=== PATIENT | female | born 1960 | race Caucasian/White ===

== ENCOUNTER 2020-10-08 06:53 | Day surgery (SDC) | payer MEDICAID ==
[2020-10-01 11:28] LABS: MEAN CORPUSCULAR HGB CONC 33.9 g/dL (33.0-36.5); PRE OP HEMOGLOBIN 12.1 g/dL (12.0-16.0); RED CELL DISTRIBUTION WIDTH 14.3 % (11.5-14.5)
[2020-10-01 11:30] LABS: MEAN CORPUSCULAR HEMOGLOBIN 32.7 PG (27.0-31.0); MEAN CORPUSCULAR VOLUME 96.5 FL (78-98); PRE OP HEMATOCRIT 35.6 % (35.0-45.0); PRE OP PLATELET COUNT 262 X10'3 (140-440); RED BLOOD COUNT 3.69 X10'6 (4.20-5.60)
[2020-10-01 11:41] LABS: ALBUMIN 3.7 G/DL (3.4-5.0); ALBUMIN/GLOBULIN RATIO 1.2 (1.1-1.5); ALKALINE PHOSPHATASE 46 IU/L (46-116); BLOOD UREA NITROGEN 17 MG/DL (7-18); BUN/CREATININE RATIO 25.4 (6.6-38.0); CALCIUM 9.2 MG/DL (8.5-10.1); CHLORIDE 103 MMOL/L (99-107); CREATININE 0.67 MG/DL (0.40-0.90); PRE OP ALT 37 U/L (30-65); PRE OP ANION GAP 7 (8-16); PRE OP AST 47 U/L (10-37); PRE OP BILIRUB, TOTAL 0.4 MG/DL (0.0-1.0); PRE OP GLUCOSE 86 MG/DL (70-104); PRE OP POTASSIUM 3.9 MMOL/L (3.4-5.1); PRE OP SODIUM 137 MMOL/L (135-145); TOTAL CARBON DIOXIDE 26.9 MMOL/L (24-32); TOTAL PROTEIN 6.9 G/DL (6.4-8.2); eGFR 89 ML/MIN
[2020-10-01 12:03] LABS: PLATELET ESTIMATE NORMAL; TOTAL CELLS COUNTED 100
[2020-10-08] VITALS (7 sets, daily range): BP systolic 110–136; BP diastolic 60–106
[~2020-10-08] VITALS: Ht 175.3 cm; Wt 58.0 kg
[~2020-10-08 06:53] MED LIST: ANAS1TAB PO; CALC600T22 PO; CHOL50004 PO; IBUP-1986 PO; MULT-38 PO; albuterol 2.5 MG/3 ML nebule NEB ONE; ceFAZolin 2gm in dextrose, iso 50 ML IV ONE; famotidine 20mg tablet PO ONE; ringers solution, lacted 1,000 ML IV SCH
[2020-10-08] MEDS ORDERED: dexamethasone sod phosphate 10mg/ml inj ONE (10:40)
[2020-10-08] MEDS ORDERED: sevoflurane 250ml liquid IH ONE (10:40)
[2020-10-08] MEDS ORDERED: MIDAZolam 1 MG/ML 5ML VIAL ONE (10:42)
[2020-10-08] MEDS ORDERED: fentaNYL/PF 50MCG/1 ML 2ML syringe ONE ×2 (10:42→10:55)
[2020-10-08] MEDS ORDERED: propofol inj 20 ML IV ONE (10:43)
[2020-10-08] MEDS ORDERED: ROPIVAcaine 0.5% (5mg/ml) 30ml vial ONE (10:43)
[2020-10-08] MEDS ORDERED: LIDOcaine 2% (20mg/ml) 5ml vial ONE (10:43)
[2020-10-08] MEDS ORDERED: ondansetron/PF 4mg/2ml inj ONE (10:56)
[2020-10-08] MEDS ORDERED: ringers solution, lacted 1,000 ML IV SCH (11:15)
[2020-10-08] MEDS ORDERED: morphine 4 MG/ML inj SYRINge IV PRN (11:15)
[2020-10-08] MEDS ORDERED: hydrALAZINE 20mg/ml inj. IV PRN (11:15)
[2020-10-08] MEDS ORDERED: ondansetron/PF 4mg/2ml inj IV PRN (11:15)
[2020-10-08] MEDS ORDERED: morphine 2 MG/ML inj. syringe IV PRN (11:15)
[2020-10-08] MEDS ORDERED: labetalol 20mg/4ml (5mg/ml) syringe IV PRN (11:15)
[2020-10-08] MEDS ORDERED: fentaNYL/PF 50MCG/1 ML 2ML syringe IV PRN ×2 (11:15)
[2020-10-08] MEDS ORDERED: bacitracin 15gm ointment TP ONE (12:18)
--- NOTE | 2020-10-08 12:31 | NUR ---
Received from OR via [facility], accompanied by Anesthesiologist EULOGIO and report given by Anesthesiolgist. PT. VSS. ALERT, TALKING TO STAFF. DENIES PAIN. LEFT FOOT DRESSING INTACT, SMALL AMOUNT OF BLOOD NOTED AT GREAT TOE. REINFORCED WITH GAUZE 2X2. L. FOOT ELEVATED. PT. REPORTS STINGING AT TOURNIGUET SITE, NS MOISTENED GAUZE GIVEN FOR COMFORT. PT. STATES RELIEF. IV IN R. AC. 18 G. CDI. LR INFUSING AT 90 ML/HR. MOVES ALL EXTREMITIES, SENSATION INTACT. Addendum: 10/08/20 at 1301 by Corrine Tyler RN Amended: Links added.
--- NOTE | 2020-10-08 13:10 | NUR ---
pt. bp registered diasolic of 106 which was in error. pt. moving around in bed to be able to drink some coffee. new bp 119/53. Addendum: 10/08/20 at 1334 by Corrine Tyler RN Amended: Links added.
--- NOTE | 2020-10-08 13:31 | NUR ---
PT. DISCHARGED TO FRONT ENTRANCE VIA WC WITH NURSE TO PRIVATE VEHICLE. VSS. DENIES PAIN. L. FOOT DRESSING CDI EXCEPT FOR SMALL AMOUNT OF RED BLOOD AT GREAT TOE, SITE REINFORCED BY 2X2 GAUZE. NO INCREASED BLEEDING NOTED PRIOR TO DC. IV REMOVED. ALL DISCHARGE CRITERIA MET. PT. VERBALIZES UNDERSTANDING OF ALL INSTRUCTIONS AND ALL QUESTIONS WERE ANSWERED. PT. ABLE TO TRANSFER SELF TO VEHICLE. LEFT WITH ALL BELONGINGS AND BOOT. PT. HAD SLIGHT IRRITATION TO LEFT CALF FROM [place]. PT. STATES STINGING. SOME IMPROVEMENT NOTED PRIOR TO DISCHARGE. NO OPEN AREA JUST PINK AND STILL WRINKLED FROM TOURNIQUET. Addendum: 10/08/20 at 1341 by Corrine Tyler RN Amended: Links added.
--- NOTE | 2020-10-08 15:36 | NUR ---
PT. TELEPHONED/ LEFT MESSAGE RE: BOOT APPLICATION. INSTRUCTED TO GO AHEAD AND PLACE BOOT ON AND STRAP DOWN BEST SHE CAN. ENCOURAGED TO WEAR WHEN UP AND ABOUT FOR PROTECTION AND AT NIGHT IF POSSIBLE IN CASE SHE FORGETS SHE HAD SURGERY. ENCOURAGED PT. TO CALL BACK WITH ANY QUESTIONS.
== END 2020-10-08 13:31 | disposition home or self-care (01) ==
LOC: PAS 06:53
PROVIDERS: ATTEND Podiatrist Foot & Ankle Surgery
DX: M20.12 Hallux valgus (acquired), left foot (principal); M25.872 Other specified joint disorders, left ankle and foot; M20.22 Hallux rigidus, left foot; G57.82 Other specified mononeuropathies of left lower limb; M67.472 Ganglion, left ankle and foot; G89.18 Other acute postprocedural pain; F41.9 Anxiety disorder, unspecified; F32.9 Major depressive disorder, single episode, unspecified; M19.072 Primary osteoarthritis, left ankle and foot; M17.11 Unilateral primary osteoarthritis, right knee; F17.210 Nicotine dependence, cigarettes, uncomplicated; Z20.822 Contact with and (suspected) exposure to COVID-19; Z90.710 Acquired absence of both cervix and uterus; Z98.890 Other specified postprocedural states; Z85.3 Personal history of malignant neoplasm of breast; Z87.442 Personal history of urinary calculi; Z88.2 Allergy status to sulfonamides; Z79.899 Other long term (current) drug therapy; Z91.040 Latex allergy status
CPT/HCPCS: 28080; 28750; 36415; 64447; 64450; 71046; 73620; 76000; 80053; 82948; 85025; 93005; A6223; C1713; J1100; J2001; J2250; J2405; J2704; J3010; U0003; 85007; A4618; A6449; A7000; J2795; J7120

== ENCOUNTER 2021-08-18 08:33 | Day surgery (SDC) | payer MEDICAID ==
[~2021-08-18] VITALS: Ht 175.3 cm; Wt 59.2 kg
[2021-08-18] VITALS (10 sets, daily range): BP systolic 105–150; BP diastolic 48–89
[~2021-08-18 08:33] MED LIST changes: -albuterol 2.5 MG/3 ML nebule NEB ONE; -ceFAZolin 2gm in dextrose, iso 50 ML IV ONE; -famotidine 20mg tablet PO ONE; -ringers solution, lacted 1,000 ML IV SCH
[2021-08-18] MEDS ORDERED: normal saline 1000ml 1,000 ML IV PRN (09:00)
[2021-08-18] MEDS ORDERED: midazolam 1 mg/ML 2ml injection ONE (09:28)
[2021-08-18] MEDS ORDERED: fentaNYL/PF 50MCG/1 ML 2ML syringe ONE (09:28)
== END 2021-08-18 11:45 | disposition home or self-care (01) ==
LOC: SSTAY O 08:33
PROVIDERS: ATTEND Radiology Vascular & Interventional Radiology
DX: M89.8X8 Other specified disorders of bone, other site (principal); C50.412 Malignant neoplasm of upper-outer quadrant of left female breast; M85.80 Other specified disorders of bone density and structure, unspecified site; Z72.0 Tobacco use; Z86.16 Personal history of COVID-19; Z90.710 Acquired absence of both cervix and uterus; Z98.890 Other specified postprocedural states; Z72.89 Other problems related to lifestyle; Z88.2 Allergy status to sulfonamides; Z79.899 Other long term (current) drug therapy
CPT/HCPCS: 20220; 77012; J2250; J3010; 99152; 99153

== ENCOUNTER 2023-06-04 06:50 | Day surgery (SDC) | payer MEDICAID ==
[~2023-06-04] VITALS: Ht 175.3 cm; Wt 52.4 kg
[2023-06-04] VITALS (10 sets, daily range): BP systolic 102–151; BP diastolic 46–88; PULSE 69–77; RESP 14–16; TEMP 97.8; O2SAT 94–100
[~2023-06-04 06:50] MED LIST changes: -CALC600T22 PO
[2023-06-04] MEDS ORDERED: OLOP2.5D16 EACHEYE (07:17)
[2023-06-04] MEDS ORDERED: TRAM50TA2 PO (07:17)
[2023-06-04] MEDS ORDERED: TAMO20TA4 PO (07:17)
[2023-06-04] MEDS ORDERED: CETI10TA14 PO (07:17)
[2023-06-04] MEDS ORDERED: GABA300T25 PO (07:17)
[2023-06-04] MEDS ORDERED: FLUT16SP26 BOTHNARES (07:17)
[2023-06-04] MEDS ORDERED: HYDR-3972 PO (07:17)
[2023-06-04] MEDS ORDERED: OLOP5DRO24 EACHEYE (07:17)
[2023-06-04] MEDS ORDERED: normal saline 1000ml 1,000 ML IV PRN (07:20)
[2023-06-04 07:50] LABS: HEMOGLOBIN 13.4 g/dl (12.0-16.0)
[2023-06-04 07:52] LABS: HEMATOCRIT 40.6 % (35.0-45.0); MEAN CORPUSCULAR HEMOGLOBIN 32.4 PG (27.0-31.0); MEAN CORPUSCULAR VOLUME 98.3 FL (78-98); MEAN PLATELET VOLUME 7.6 FL (7.4-10.4); PLATELET COUNT 233 X10'3 (140-440); RED CELL DISTRIBUTION WIDTH 14.4 % (11.5-14.5); WHITE BLOOD COUNT 5.9 X10'3 (4.5-11.0)
[2023-06-04 07:53] LABS: RED BLOOD COUNT 4.15 X10'6 (4.20-5.60)
[2023-06-04 07:55] LABS: PROTHROMBIN TIME 11.1 SECONDS (9.0-12.0)
[2023-06-04 08:19] LABS: TOTAL CELLS COUNTED 100
[2023-06-04 08:20] LABS: PLATELET ESTIMATE NORMAL
[2023-06-04] MEDS ORDERED: LIDOcaine 1% 30ml preserv. free vial ONE (09:47)
[2023-06-04] MEDS ORDERED: fentaNYL/PF 50MCG/1 ML 2ML syringe ONE (09:56)
[2023-06-04] MEDS ORDERED: midazolam 1 mg/ML 2ml injection ONE (09:56)
== END 2023-06-04 11:40 | disposition home or self-care (01) ==
LOC: SSTAY O 06:50
PROVIDERS: ATTEND Radiology Vascular & Interventional Radiology
DX: M89.8X8 Other specified disorders of bone, other site (principal); C79.51 Secondary malignant neoplasm of bone; C50.412 Malignant neoplasm of upper-outer quadrant of left female breast; M85.80 Other specified disorders of bone density and structure, unspecified site; Z72.0 Tobacco use; Z90.710 Acquired absence of both cervix and uterus; Z98.890 Other specified postprocedural states; F10.20 Alcohol dependence, uncomplicated; Z88.2 Allergy status to sulfonamides; Z79.899 Other long term (current) drug therapy
CPT/HCPCS: 20220; 77012; 85025; 85610; 99152; 99153; J2250; J3010; J3490; J7030; 20225; 85007; A4615